=== PATIENT | male | born 1990 | race Two or more races ===

== ENCOUNTER 2016-05-22 16:08 | Inpatient (IN) | payer MEDICAID ==
[~2016-05-22] VITALS: Ht 175.3 cm; Wt 85.0 kg
[~2016-05-22 16:08] MED LIST: LACT10SO PO; PANT40TA2 PO
[2016-05-22 16:51] LABS: Basophils # (auto) 0 uL; DEFINITIVE VIEW TRANSMISSION; Eosinophils # (auto) 0 uL; Eosinophils % (auto) 0.4 % (0.0-7.0); Hematocrit 26.9 % (41.0-53.0); Hemoglobin 8.1 g/dL (13.5-17.5); Lymphocytes # (auto) 0.5 uL; Lymphocytes % (auto) 4.1 % (10.0-50.0); Mean Corpuscular Hemoglobin 23.8 pg (28.0-32.0); Mean Corpuscular Hgb Conc. 30.3 g/dL (32.0-36.0); Mean Corpuscular Volume 78.8 fL (80.0-100.0); Mean Platelet Volume 8.6 fL (7.4-10.4); Monocytes # (auto) 0.9 uL; Monocytes % (auto) 6.9 % (0.0-12.0); Neutrophils % (auto) 88.6 % (37.0-80.0); Platelet Count (auto) 62 10^3/uL (140-450); Red Cell Distribution Width 19.4 % (11.6-16.0); White Blood Cell 12.5 10^3/uL (4.4-10.8)
[2016-05-22 17:18] LABS: Albumin 3.6 g/dL (3.4-5.0); Anion Gap 11 (5-15); Aspartate Aminotransferase 112 U/L (15-37); BUN/Creatinine Ratio 8.6; Blood Urea Nitrogen 6 mg/dL (7-18); Calcium 8.6 mg/dL (8.5-10.1); Carbon Dioxide 25 mmol/L (21-32); Chloride 101 mmol/L (98-107); GFR African American 174 mL/min; GFR Non-African American 144 mL/min; Glucose 99 mg/dL (74-106); Potassium 3.6 mmol/L (3.5-5.1); Sodium 137 mmol/L (136-145)
[2016-05-22 17:20] LABS: Alkaline Phosphatase 240 U/L (45-117); Bilirubin, Total 1.8 mg/dL (0.2-1.0); Total Protein 10.2 g/dL (6.4-8.2)
[2016-05-22] MEDS ORDERED: SODIUM CHLORIDE 0.9% 2,000 ML IV ONE (17:30)
[2016-05-22] MEDS ORDERED: LORazepam 2MG/ML-1ML VIAL IV ONE (17:30)
[2016-05-22 17:38] LABS: Anisocytosis Moderate; Hypochromia Moderate; Platelet Estimate Decreased
[2016-05-22] MEDS ORDERED: LACTULOSE 20Gm/30ML SOLN PO ONE (18:45)
[2016-05-22] MEDS: SODIUM CHLORIDE 0.9% 1,000 ML IV SCH (19:58)
[2016-05-22] MEDS ORDERED: chlordiazePOXIDE HCL 25 MG CAP PO ONE (20:00)
[2016-05-22] MEDS ORDERED: THIAMINE HCL 100 MG/ML 2ML VIAL IV ONE (20:00)
[2016-05-22] MEDS ORDERED: MORPHINE SULFATE 4 MG/ML SYRG IV PRN (20:00)
[2016-05-22] MEDS ORDERED: LACTULOSE 20Gm/30ML SOLN PO PRN (20:00)
[2016-05-22] MEDS ORDERED: MORPHINE SULF INJ 2 MG/ML SYRINGE 1ML IV PRN (20:00)
[2016-05-22] MEDS ORDERED: PANTOPRAZOLE SODIUM 40 MG/10 ML VIAL IV ONE (20:00)
[2016-05-22] MEDS ORDERED: NITROGLYCERIN 0.4 MG SL TAB SL PRN (20:00)
[2016-05-22 20:57] LABS: Amylase 97 U/L (25-115)
[2016-05-22 21:18] LABS: Partial Thromboplastin Time 29.3 sec (22.64-33.71)
[2016-05-22] MEDS: PROMETHAZINE HCL 25 MG/ML 1ML IV PRN (21:27)
[2016-05-22 21:34] LABS: Urine Bilirubin Negative (Negative); Urine Blood Negative /uL (Negative); Urine Color Yellow (Yellow); Urine Glucose Normal (Normal); Urine Ketone 1+ (Negative); Urine Mucus FEW (None Seen); Urine Nitrite Negative (Negative); Urine RBC 1 /hpf (0 - 3); Urine Squamous Epithelial Cell FEW /hpf (<5)
[2016-05-22 21:35] LABS: INR 1.24 (0.9-1.15); Prothrombin Time 12.8 sec (9.37-12.3)
[2016-05-22] MEDS: LORazepam 2MG/ML-1ML VIAL IV PRN (21:57)
[2016-05-22 22:05] VITALS: BP 138/79
[2016-05-22] MEDS: MORPHINE SULF INJ 2 MG/ML SYRINGE 1ML IV PRN (22:14)
[2016-05-22] MEDS ORDERED: PROP60CA8 PO (22:49)
[2016-05-22] MEDS ORDERED: FER325T PO (22:49)
[2016-05-22] MEDS ORDERED: TRAZ50TA2 PO (22:49)
[2016-05-22] MEDS ORDERED: SPIR25TA89 PO (22:49)
[2016-05-22] MEDS ORDERED: PANT40TA2 PO (22:49)
[2016-05-22] MEDS ORDERED: LOR05T PO (22:50)
[2016-05-22] MEDS: chlordiazePOXIDE HCL 5 MG CAP PO SCH (23:36)
[2016-05-22 23:39] VITALS: BP 148/85
[2016-05-23] VITALS (10 sets, daily range): BP systolic 139–149; BP diastolic 79–94
[2016-05-23 01:09] LABS: Hematocrit 23.7 % (41.0-53.0); Hemoglobin 7.2 g/dL (13.5-17.5)
[2016-05-23] MEDS: SODIUM CHLORIDE 0.9% 1,000 ML IV SCH ×2 (02:27→06:01)
[2016-05-23] MEDS: chlordiazePOXIDE HCL 5 MG CAP PO SCH ×4 (06:01→23:25)
[2016-05-23] MEDS: MORPHINE SULF INJ 2 MG/ML SYRINGE 1ML IV PRN ×2 (06:17→21:53)
[2016-05-23] MEDS: PROMETHAZINE HCL 25 MG/ML 1ML IV PRN ×2 (06:17→10:16)
[2016-05-23 06:33] LABS: Basophils # (auto) 0 uL; Basophils % (auto) 0.1 % (0.0-2.0); DEFINITIVE VIEW TRANSMISSION; Eosinophils # (auto) 0.1 uL; Eosinophils % (auto) 1.3 % (0.0-7.0); Hematocrit 22.9 % (41.0-53.0); Lymphocytes # (auto) 0.7 uL; Lymphocytes % (auto) 7.3 % (10.0-50.0); Mean Corpuscular Hemoglobin 23.5 pg (28.0-32.0); Mean Corpuscular Hgb Conc. 30.1 g/dL (32.0-36.0); Mean Corpuscular Volume 78.1 fL (80.0-100.0); Mean Platelet Volume 8.6 fL (7.4-10.4); Monocytes # (auto) 0.9 uL; Monocytes % (auto) 10.2 % (0.0-12.0); Neutrophils # (auto) 7.5 uL; Neutrophils % (auto) 81.1 % (37.0-80.0); Platelet Count (auto) 43 10^3/uL (140-450); Red Cell Distribution Width 19.7 % (11.6-16.0); White Blood Cell 9.3 10^3/uL (4.4-10.8)
[2016-05-23 06:42] LABS: Hemoglobin 6.9 g/dL (13.5-17.5)
[2016-05-23 06:51] LABS: Potassium 3.3 mmol/L (3.5-5.1)
[2016-05-23 06:54] LABS: Cholesterol 138 mg/dL (<200); HDL Cholesterol 60 mg/dL (40-59); LDL Cholesterol 81 mg/dL (<100); Triglycerides 96 mg/dL (<150)
[2016-05-23 07:05] LABS: BUN/Creatinine Ratio 14.5; Bilirubin, Total 1.8 mg/dL (0.2-1.0); Calcium 7.8 mg/dL (8.5-10.1); Total Protein 8.5 g/dL (6.4-8.2)
[2016-05-23] MEDS: THIAMINE HCL 100 MG/ML 2ML VIAL IV SCH (10:16)
[2016-05-23] MEDS: PANTOPRAZOLE SODIUM 40 MG/10 ML VIAL IV SCH (10:16)
[2016-05-23] MEDS ORDERED: ATENOLOL 25 MG TAB PO ONE (13:00)
[2016-05-23] MEDS ORDERED: SOD CHL 0.9%/ KCL 20MEQ 1,000 ML IV SCH (13:00)
[2016-05-23] MEDS ORDERED: POTASSIUM CHL 20 Meq TABLET PO ONE (13:00)
[2016-05-23 20:16] LABS: DEFINITIVE VIEW TRANSMISSION; Hematocrit 28.6 % (41.0-53.0); Hemoglobin 8.6 g/dL (13.5-17.5); Mean Corpuscular Hemoglobin 24.1 pg (28.0-32.0); Mean Corpuscular Volume 80.5 fL (80.0-100.0); Mean Platelet Volume 8.7 fL (7.4-10.4); Platelet Count (auto) 69 10^3/uL (140-450); Red Cell Distribution Width 19.1 % (11.6-16.0); White Blood Cell 9.4 10^3/uL (4.4-10.8)
[2016-05-23 20:19] LABS: Metamyelocytes % 0; Myelocytes % 0; Promyelocytes % 0; Reactive Lymphocytes 0
[2016-05-23] MEDS: LORazepam 2MG/ML-1ML VIAL IV PRN (21:46)
[2016-05-23 21:48] LABS: Anisocytosis Moderate; Hypochromia Moderate; Platelet Estimate Decreased
[2016-05-24] VITALS (7 sets, daily range): BP systolic 126–143; BP diastolic 69–84
[2016-05-24 05:00] LABS: Basophils # (auto) 0 uL; Basophils % (auto) 0.1 % (0.0-2.0); DEFINITIVE VIEW TRANSMISSION; Eosinophils # (auto) 0.3 uL; Eosinophils % (auto) 3.1 % (0.0-7.0); Hematocrit 28.5 % (41.0-53.0); Hemoglobin 8.5 g/dL (13.5-17.5); Lymphocytes # (auto) 0.8 uL; Lymphocytes % (auto) 7.6 % (10.0-50.0); Mean Corpuscular Hemoglobin 24.1 pg (28.0-32.0); Mean Corpuscular Hgb Conc. 29.8 g/dL (32.0-36.0); Mean Corpuscular Volume 80.7 fL (80.0-100.0); Mean Platelet Volume 8.4 fL (7.4-10.4); Monocytes # (auto) 0.6 uL; Monocytes % (auto) 6.4 % (0.0-12.0); Neutrophils # (auto) 8.3 uL; Neutrophils % (auto) 82.8 % (37.0-80.0); Platelet Count (auto) 68 10^3/uL (140-450)
[2016-05-24 05:27] LABS: Albumin 3.2 g/dL (3.4-5.0); BUN/Creatinine Ratio 9.2; Bilirubin, Total 2.3 mg/dL (0.2-1.0); Calcium 8.4 mg/dL (8.5-10.1); Potassium 3.7 mmol/L (3.5-5.1); Total Protein 8.7 g/dL (6.4-8.2)
[2016-05-24] MEDS: chlordiazePOXIDE HCL 5 MG CAP PO SCH ×4 (06:05→23:18)
[2016-05-24] MEDS: THIAMINE HCL 100 MG/ML 2ML VIAL IV SCH (09:37)
[2016-05-24] MEDS: PANTOPRAZOLE SODIUM 40 MG/10 ML VIAL IV SCH (09:38)
[2016-05-24] MEDS ORDERED: ATENOLOL 25 MG TAB PO SCH (10:00)
[2016-05-24] MEDS: MORPHINE SULF INJ 2 MG/ML SYRINGE 1ML IV PRN (19:42)
[2016-05-24] MEDS: ATENOLOL 25 MG TAB PO SCH (21:13)
[2016-05-25] MEDS: MORPHINE SULF INJ 2 MG/ML SYRINGE 1ML IV PRN ×4 (01:45→23:33)
[2016-05-25 05:22] VITALS: BP 131/68
[2016-05-25 05:32] VITALS: BP 131/68
[2016-05-25] MEDS: chlordiazePOXIDE HCL 5 MG CAP PO SCH ×4 (06:22→23:33)
[2016-05-25 07:16] LABS: Basophils # (auto) 0.1 uL; Basophils % (auto) 0.5 % (0.0-2.0); DEFINITIVE VIEW TRANSMISSION; Eosinophils # (auto) 0.3 uL; Eosinophils % (auto) 2.8 % (0.0-7.0); Hematocrit 28.8 % (41.0-53.0); Hemoglobin 8.6 g/dL (13.5-17.5); Lymphocytes # (auto) 0.9 uL; Lymphocytes % (auto) 8.6 % (10.0-50.0); Mean Corpuscular Hemoglobin 23.9 pg (28.0-32.0); Mean Corpuscular Volume 79.8 fL (80.0-100.0); Mean Platelet Volume 9.2 fL (7.4-10.4); Monocytes # (auto) 0.9 uL; Monocytes % (auto) 8.2 % (0.0-12.0); Neutrophils # (auto) 8.4 uL; Neutrophils % (auto) 79.9 % (37.0-80.0); Platelet Count (auto) 87 10^3/uL (140-450); Red Cell Distribution Width 19.6 % (11.6-16.0); White Blood Cell 10.6 10^3/uL (4.4-10.8)
[2016-05-25 09:00] VITALS: BP 119/70
[2016-05-25] MEDS: THIAMINE HCL 100 MG/ML 2ML VIAL IV SCH (10:47)
[2016-05-25] MEDS: ATENOLOL 25 MG TAB PO SCH ×2 (10:48→22:05)
[2016-05-25] MEDS: LORazepam 2MG/ML-1ML VIAL IV PRN ×2 (12:23→18:19)
[2016-05-25 13:00] VITALS: BP 122/70
[2016-05-25 17:00] VITALS: BP 119/66
[2016-05-25 21:45] VITALS: BP 115/67
[2016-05-26] MEDS: LORazepam 2MG/ML-1ML VIAL IV PRN ×4 (00:21→22:37)
[2016-05-26 05:00] VITALS: BP 129/74
[2016-05-26 05:53] LABS: Hematocrit 29.5 % (41.0-53.0); Hemoglobin 8.8 g/dL (13.5-17.5)
[2016-05-26 06:02] LABS: INR 1.49 (0.9-1.15); Prothrombin Time 15.3 sec (9.37-12.3)
[2016-05-26] MEDS: chlordiazePOXIDE HCL 5 MG CAP PO SCH ×3 (06:06→18:32)
[2016-05-26 08:53] VITALS: BP 117/55
[2016-05-26 10:25] LABS: Albumin 3.1 g/dL (3.4-5.0); BUN/Creatinine Ratio 10.2; Bilirubin, Total 1.7 mg/dL (0.2-1.0); Calcium 8.5 mg/dL (8.5-10.1); Potassium 3.7 mmol/L (3.5-5.1); Total Protein 8.8 g/dL (6.4-8.2)
[2016-05-26] MEDS: THIAMINE HCL 100 MG/ML 2ML VIAL IV SCH (10:39)
[2016-05-26] MEDS: ATENOLOL 25 MG TAB PO SCH ×2 (10:41→22:03)
[2016-05-26 13:00] VITALS: BP 117/61
[2016-05-26 17:00] VITALS: BP 127/57
[2016-05-26 22:00] VITALS: BP 119/67
[2016-05-26] MEDS: LACTULOSE 20Gm/30ML SOLN PO SCH (22:03)
[2016-05-27] MEDS: chlordiazePOXIDE HCL 5 MG CAP PO SCH ×2 (00:27→05:52)
[2016-05-27] MEDS: LORazepam 2MG/ML-1ML VIAL IV PRN ×2 (00:40→06:09)
[2016-05-27 05:00] VITALS: BP 122/62
[2016-05-27] MEDS: LACTULOSE 20Gm/30ML SOLN PO SCH (05:52)
[2016-05-27 09:21] VITALS: BP 119/70
[2016-05-27] MEDS ORDERED: ATE25T PO (09:58)
[2016-05-27] MEDS ORDERED: FER325T PO (09:58)
[2016-05-27] MEDS ORDERED: LACT10SO PO (09:58)
[2016-05-27] MEDS: ATENOLOL 25 MG TAB PO SCH (10:06)
[2016-05-27] MEDS: THIAMINE HCL 100 MG/ML 2ML VIAL IV SCH (10:07)
[2016-05-27 11:13] VITALS: BP 128/72
== END 2016-05-27 12:00 | disposition still patient (30) | DRG 775 ==
LOC: ER 16:11 → TELE 16:12 → DOU IN ICU 21:07 → CENTRAL 05-25 00:12
PROVIDERS: ADMIT Internal Medicine; ATTEND Internal Medicine
PROC: 30233R1 Transfusion of Nonautologous Platelets into Peripheral Vein, Percutaneous Approach (ICD-10-PCS; principal; 2016-05-23)
PROC: 30233N1 Transfusion of Nonautologous Red Blood Cells into Peripheral Vein, Percutaneous Approach (ICD-10-PCS; 2016-05-23)
DX: F10.231 Alcohol dependence with withdrawal delirium (principal); D68.9 Coagulation defect, unspecified; K92.0 Hematemesis; K70.30 Alcoholic cirrhosis of liver without ascites; D69.6 Thrombocytopenia, unspecified; D62 Acute posthemorrhagic anemia; F32.9 Major depressive disorder, single episode, unspecified; D72.829 Elevated white blood cell count, unspecified; I10 Essential (primary) hypertension; F41.9 Anxiety disorder, unspecified; G40.909 Epilepsy, unspecified, not intractable, without status epilepticus; F17.210 Nicotine dependence, cigarettes, uncomplicated; Z81.1 Family history of alcohol abuse and dependence; Z82.0 Family history of epilepsy and other diseases of the nervous system; Z79.899 Other long term (current) drug therapy; Z71.41 Alcohol abuse counseling and surveillance of alcoholic
CPT/HCPCS: 36415; 36430; 80053; 80061; 80320; 81001; 82140; 82150; 82270; 82962; 83690; 85007; 85014; 85018; 85025; 85027; 85045; 85610; 85730; 86850; 86900; 86901; 86920; 87081; 96361; 96374; 96375; C9113; G0434

== ENCOUNTER 2017-07-08 19:44 | Inpatient (IN) | payer SELFPAY ==
[~2017-07-08] VITALS: Ht 175.3 cm; Wt 86.2 kg
[~2017-07-08 19:44] MED LIST changes: +ATEN25TA PO; +FER325T PO; -LACT10SO PO; +LACT10SO3 PO
[2017-07-08] MEDS ORDERED: SODIUM CHLORIDE 0.9% 1,000 ML IV ONE (21:18)
[2017-07-08] MEDS ORDERED: PANTOPRAZOLE 40 MG/10 ML VIAL IV ONE (21:30)
[2017-07-08] MEDS ORDERED: ONDANSETRON HCL 4 MG/2 ML VIAL IV ONE ×2 (21:30→23:30)
[2017-07-08] MEDS ORDERED: NALBUPHINE HCL 10 MG/1ml INJECTION IV ONE ×2 (21:30→23:30)
[2017-07-08 21:43] LABS: Eosinophils # (auto) 0 uL; Lymphocytes # (auto) 0.2 uL; Neutrophils # (auto) 4.7 uL
[2017-07-08 21:45] LABS: Basophils # (auto) 0.1 uL; Basophils % (auto) 1.1 % (0.0-2.0); Hematocrit 21.5 % (41.0-53.0); Lymphocytes % (auto) 3.4 % (10.0-50.0); Mean Corpuscular Hemoglobin 21.9 pg (28.0-32.0); Mean Corpuscular Hgb Conc. 30.6 g/dL (32.0-36.0); Mean Corpuscular Volume 71.5 fL (80.0-100.0); Monocytes # (auto) 0.8 uL; Monocytes % (auto) 13.4 % (0.0-12.0); Neutrophils % (auto) 82.1 % (37.0-80.0); Nucleated Red Blood Cells % 0.6 %; Platelet Count (auto) 31 10^3/uL (140-450); White Blood Cell 5.7 10^3/uL (4.4-10.8)
[2017-07-08 21:57] LABS: Red Cell Distribution Width 24.5 % (11.8-14.3)
[2017-07-08 22:03] LABS: Calcium 7.5 mg/dL (8.5-10.1); Potassium 3.7 mmol/L (3.5-5.1)
[2017-07-08 22:05] LABS: Bilirubin, Total 2.3 mg/dL (0.2-1.0); Total Protein 8.1 g/dL (6.4-8.2)
[2017-07-08 22:08] LABS: Hemoglobin 6.6 g/dL (13.5-17.5)
[2017-07-08 22:11] LABS: INR 1.29 (0.9-1.15); Partial Thromboplastin Time 26.4 sec (22.64-33.71); Prothrombin Time 14.1 sec (9.37-12.3)
[2017-07-08] MEDS ORDERED: THIAMINE INJ 100 MG, MULTIPLE VITAMIN 10 ML, FOLIC ACID 1 MG, MAGNESIUM SULF SDV 50% 8 ... IV SCH ×5 (22:30)
[2017-07-08] MEDS ORDERED: PHYTONADIONE (VIT K)10 MG/ML 1ML VIAL SUBCUT ONE ×2 (22:30)
[2017-07-09] VITALS (15 sets, daily range): BP systolic 131–171; BP diastolic 59–96
[2017-07-09] MEDS: ONDANSETRON HCL 4 MG/2 ML VIAL IV PRN ×2 (01:15→08:47)
[2017-07-09] MEDS ORDERED: ONDANSETRON HCL 4 MG/2 ML VIAL IV PRN (02:15)
[2017-07-09] MEDS ORDERED: NITROGLYCERIN 0.4 MG SL TAB SL PRN (02:15)
[2017-07-09] MEDS ORDERED: MORPHINE SULFATE 4 MG/ML SYR/VIAL IV PRN ×2 (02:15)
[2017-07-09 07:28] LABS: Hematocrit 21.3 % (41.0-53.0)
[2017-07-09 07:35] LABS: Hemoglobin 6.9 g/dL (13.5-17.5)
[2017-07-09 07:39] LABS: INR 1.27 (0.9-1.15); Partial Thromboplastin Time 28.6 sec (22.64-33.71); Prothrombin Time 13.9 sec (9.37-12.3)
[2017-07-09] MEDS: chlordiazePOXIDE HCL 5 MG CAP PO PRN (08:19)
[2017-07-09] MEDS: SODIUM CHLORIDE 0.9% 1,000 ML IV SCH ×2 (09:00→15:13)
[2017-07-09] MEDS ORDERED: ATENOLOL 25 MG PO SCH (10:00)
[2017-07-09] MEDS ORDERED: LACTULOSE 20Gm/30ML SOLN PO SCH (10:00)
[2017-07-09] MEDS: PANTOPRAZOLE 40 MG/10 ML VIAL IV SCH ×2 (11:08→22:18)
[2017-07-09 14:39] LABS: Basophils # (auto) 0 uL; Eosinophils # (auto) 0 uL; Mean Corpuscular Volume 75.1 fL (80.0-100.0); Monocytes # (auto) 0.6 uL; White Blood Cell 3.9 10^3/uL (4.4-10.8)
[2017-07-09 14:41] LABS: Eosinophils % (auto) 0.7 % (0.0-7.0); Hemoglobin 7.2 g/dL (13.5-17.5); Lymphocytes # (auto) 0.7 uL; Lymphocytes % (auto) 18.7 % (10.0-50.0); Mean Corpuscular Hemoglobin 23.7 pg (28.0-32.0); Mean Corpuscular Hgb Conc. 31.5 g/dL (32.0-36.0); Monocytes % (auto) 15.7 % (0.0-12.0); Neutrophils # (auto) 2.5 uL; Neutrophils % (auto) 63.9 % (37.0-80.0); Nucleated Red Blood Cells % 0.6 %; Red Blood Cells 3.06 10^6/uL (4.5-5.90)
[2017-07-09 14:58] LABS: Red Cell Distribution Width 24.3 % (11.8-14.3)
[2017-07-09 14:59] LABS: Platelet Count (auto) 20 10^3/uL (140-450)
[2017-07-09] MEDS: METOPROLOL TARTRATE 25 MG TAB PO SCH ×2 (18:07→22:18)
[2017-07-09] MEDS: LACTULOSE 20Gm/30ML SOLN PO SCH (22:18)
[2017-07-09] MEDS ORDERED: MULTIPLE VITAMIN 10 ML, FOLIC ACID 1 MG, MAGNESIUM SULF SDV 50% 8 MEQ in SODIUM CHLORID... IV SCH (22:30)
[2017-07-10 00:08] VITALS: BP 137/74
[2017-07-10] MEDS: METOPROLOL TARTRATE 25 MG TAB PO SCH (00:08)
[2017-07-10 01:14] LABS: Hemoglobin 8.3 g/dL (13.5-17.5)
[2017-07-10 01:16] LABS: Hematocrit 26.3 % (41.0-53.0); Mean Corpuscular Hemoglobin 24.6 pg (28.0-32.0); Mean Corpuscular Hgb Conc. 31.5 g/dL (32.0-36.0); Platelet Count (auto) 21 10^3/uL (140-450); Red Blood Cells 3.37 10^6/uL (4.5-5.90); White Blood Cell 3.9 10^3/uL (4.4-10.8)
[2017-07-10 01:30] LABS: Basophils % (manual) 0 (0.0-2.0); Blast Cells 0; Metamyelocytes % 0; Myelocytes % 0; Promyelocytes % 0; Reactive Lymphocytes 0; Red Cell Distribution Width 24.4 % (11.8-14.3)
[2017-07-10 01:50] LABS: Band Neutrophils % (manual) 3; Eosinophils % (manual) 1 (0-7); Lymphocytes % (manual) 26 (10.0-50.0); Monocytes % (manual) 14 (0-12)
[2017-07-10] MEDS: SODIUM CHLORIDE 0.9% 1,000 ML IV SCH (03:36)
[2017-07-10 05:23] LABS: Basophils # (auto) 0 uL; Eosinophils # (auto) 0 uL; Hemoglobin 8.1 g/dL (13.5-17.5); Monocytes # (auto) 0.5 uL; White Blood Cell 3.7 10^3/uL (4.4-10.8)
[2017-07-10 05:25] LABS: Eosinophils % (auto) 1.3 % (0.0-7.0); Hematocrit 26.2 % (41.0-53.0); Lymphocytes # (auto) 0.6 uL; Lymphocytes % (auto) 17.1 % (10.0-50.0); Mean Corpuscular Hemoglobin 24.3 pg (28.0-32.0); Mean Corpuscular Hgb Conc. 31.1 g/dL (32.0-36.0); Mean Corpuscular Volume 78.3 fL (80.0-100.0); Monocytes % (auto) 13.3 % (0.0-12.0); Neutrophils # (auto) 2.5 uL; Neutrophils % (auto) 67.3 % (37.0-80.0); Nucleated Red Blood Cells % 0.2 %; Platelet Count (auto) 23 10^3/uL (140-450); Red Blood Cells 3.35 10^6/uL (4.5-5.90)
[2017-07-10 05:26] LABS: Red Cell Distribution Width 24.2 % (11.8-14.3)
[2017-07-10 05:44] LABS: Albumin 3.1 g/dL (3.4-5.0); BUN/Creatinine Ratio 11.3; Bilirubin, Total 2.5 mg/dL (0.2-1.0); Calcium 7.1 mg/dL (8.5-10.1); Potassium 3.8 mmol/L (3.5-5.1); Total Protein 7.6 g/dL (6.4-8.2)
[2017-07-10 05:53] VITALS: BP 146/80
[2017-07-10] MEDS: chlordiazePOXIDE HCL 5 MG CAP PO PRN (06:21)
[2017-07-10] MEDS: LACTULOSE 20Gm/30ML SOLN PO SCH (06:22)
[2017-07-10] MEDS ORDERED: LORazepam 2MG/ML-1ML VIAL IV ONE (07:30)
== END 2017-07-10 08:00 | disposition left against medical advice (07) | DRG 433 ==
LOC: EDBD 19:44 → ER 19:57 → TELE 19:58
PROVIDERS: ADMIT Nurse Practitioner; ATTEND Internal Medicine Pulmonary Disease
DX: K70.40 Alcoholic hepatic failure without coma (principal); D68.9 Coagulation defect, unspecified; K70.30 Alcoholic cirrhosis of liver without ascites; D61.818 Other pancytopenia; K92.0 Hematemesis; D62 Acute posthemorrhagic anemia; D69.6 Thrombocytopenia, unspecified; E44.1 Mild protein-calorie malnutrition; I10 Essential (primary) hypertension; F17.210 Nicotine dependence, cigarettes, uncomplicated; F10.129 Alcohol abuse with intoxication, unspecified; Z82.0 Family history of epilepsy and other diseases of the nervous system; Z68.28 Body mass index [BMI] 28.0-28.9, adult; Z53.21 Procedure and treatment not carried out due to patient leaving prior to being seen by health care provider
CPT/HCPCS: 36415; 36430; 71045; 74176; 80053; 82140; 83690; 85007; 85014; 85018; 85025; 85027; 85610; 85730; 86850; 86900; 86901; 86920; 93005; 94761; 96361; 96365; 96372; 96375; C9113; J2405; J3430

== ENCOUNTER 2017-08-23 07:59 | Inpatient (IN) | payer MEDICAID ==
[~2017-08-23] VITALS: Ht 180.3 cm; Wt 90.7 kg
[2017-08-23] VITALS (19 sets, daily range): BP systolic 60–144; BP diastolic 17–122
[2017-08-23] MEDS ORDERED: ONDANSETRON HCL 4 MG/2 ML VIAL ONE (08:08)
[2017-08-23] MEDS ORDERED: SODIUM CHLORIDE 0.9% 1,000 ML IVB ONE (08:30)
[2017-08-23] MEDS ORDERED: PANTOPRAZOLE 80 MG in SODIUM CHL 0.9% 60 ML IV ONE (08:30)
[2017-08-23] MEDS ORDERED: OCTREOTIDE ACETATE 500 MCG in SODIUM CHL 0.9% 100 ML IV ONE (08:30)
[2017-08-23] MEDS ORDERED: HYDROmorphone HCL 2 MG/ML VL IV ONE (08:30)
[2017-08-23] MEDS ORDERED: ONDANSETRON HCL 4 MG/2 ML VIAL IV ONE (09:00)
[2017-08-23 09:18] LABS: Eosinophils # (auto) 0 uL
[2017-08-23 09:19] LABS: Basophils # (auto) 0.1 uL; Basophils % (auto) 0.7 % (0.0-2.0); Eosinophils % (auto) 0.1 % (0.0-7.0); Hematocrit 14.7 % (41.0-53.0); Lymphocytes # (auto) 1.9 uL; Lymphocytes % (auto) 10.3 % (10.0-50.0); Mean Corpuscular Hemoglobin 26.6 pg (28.0-32.0); Mean Corpuscular Hgb Conc. 29.8 g/dL (32.0-36.0); Mean Corpuscular Volume 89.3 fL (80.0-100.0); Monocytes # (auto) 2.6 uL; Monocytes % (auto) 14.5 % (0.0-12.0); Neutrophils # (auto) 13.4 uL; Neutrophils % (auto) 74.4 % (37.0-80.0); Nucleated Red Blood Cells % 0.2 %; Platelet Count (auto) 205 10^3/uL (140-450); Red Blood Cells 1.64 10^6/uL (4.5-5.90)
[2017-08-23 09:22] LABS: INR 1.59 (0.9-1.15); Prothrombin Time 17.4 sec (9.37-12.3)
[2017-08-23 09:24] LABS: Hemoglobin 4.4 g/dL (13.5-17.5)
[2017-08-23 09:35] LABS: Alanine Aminotransferase 35 U/L (16-61); Albumin 1.6 g/dL (3.4-5.0); Alkaline Phosphatase 90 U/L (45-117); Anion Gap 16 (5-15); Aspartate Aminotransferase 96 U/L (15-37); BUN/Creatinine Ratio 13.6; Bilirubin, Total 1.7 mg/dL (0.2-1.0); Blood Urea Nitrogen 16 mg/dL (7-18); Calcium 6.7 mg/dL (8.5-10.1); Carbon Dioxide 14 mmol/L (21-32); Chloride 107 mmol/L (98-107); GFR African American 95 mL/min; GFR Non-African American 78 mL/min; Glucose 91 mg/dL (74-106); Magnesium 2.1 mg/dL (1.6-2.6); Potassium 4.6 mmol/L (3.5-5.1); Sodium 137 mmol/L (136-145); Total Protein 4.3 g/dL (6.4-8.2)
[2017-08-23] MEDS ORDERED: LORazepam 2MG/ML-1ML VIAL IV ONE (10:00)
[2017-08-23] MEDS ORDERED: THIAMINE INJ 100 MG, MULTIPLE VITAMIN 10 ML, FOLIC ACID 1 MG, MAGNESIUM SULF SDV 50% 8 ... IV SCH ×5 (12:00)
[2017-08-23] MEDS ORDERED: SODIUM CHLORIDE 0.9% 1,000 ML IV SCH ×3 (13:02→15:30)
[2017-08-23] MEDS ORDERED: LORazepam 2MG/ML-1ML VIAL ONE ×2 (13:14→16:26)
[2017-08-23] MEDS ORDERED: NITROGLYCERIN 0.4 MG SL TAB SL PRN (13:15)
[2017-08-23] MEDS ORDERED: PANTOPRAZOLE 40 MG/10 ML VIAL IV ONE (13:15)
[2017-08-23] MEDS ORDERED: cefTRIAXone 1GM/10ml IVPUSH 10 ML IV ONE (13:15)
[2017-08-23] MEDS ORDERED: MORPHINE SULFATE 4 MG/ML SYR/VIAL IV PRN (13:15)
[2017-08-23] MEDS ORDERED: PHYTONADIONE (VIT K)10 MG/ML 1ML VIAL SUBCUT ONE (13:15)
[2017-08-23] MEDS ORDERED: EPINEPHrine HCL 1 MG/10 ML SYRG ONE ×2 (13:19→19:47)
[2017-08-23] MEDS ORDERED: LEVETIRACETAM INJ 1,000 MG in D5W 5% 100 ML IV SCH (13:25)
[2017-08-23] MEDS ORDERED: MIDAZOLAM HCL 5 MG/ML-1ML VIAL ONE ×2 (13:52→14:54)
[2017-08-23] MEDS ORDERED: CALCIUM CHL 100MG/ML 1,000 MG in D5W 5% 100 ML IV ONE (14:15)
[2017-08-23] MEDS ORDERED: ERYTHROMYCIN LACTOBIONATE 250 MG in SODIUM CHL 0.9% 100 ML IV ONE (14:15)
[2017-08-23] MEDS ORDERED: MIDAZOLAM DRIP 50 mg/50mL 50 ML IV SCH (14:25)
[2017-08-23 14:26] LABS: Urine Bacteria NONE SEEN /hpf (None Seen); Urine Blood TRACE /uL (Negative); Urine Specific Gravity 1.021 (1.001-1.035); Urine Sperm PRESENT /hpf (None Seen); Urine WBC 4 /hpf (0 - 3)
[2017-08-23] MEDS ORDERED: MIDAZOLAM DRIP 50 mg/50mL 50 ML IV ONE (14:27)
[2017-08-23] MEDS: OCTREOTIDE ACETATE 500 MCG in SODIUM CHL 0.9% 99 ML IV SCH (14:30)
[2017-08-23] MEDS ORDERED: MIDAZOLAM HCL 5 MG/ML-1ML VIAL IV ONE (14:45)
[2017-08-23] MEDS ORDERED: EPINEPHrine HCL 1 MG/10 ML SYRG IV ONE (14:45)
[2017-08-23] MEDS: metroNIDAZOLE 500MG/100ML 100 ML IV SCH ×2 (14:53→21:17)
[2017-08-23] MEDS ORDERED: NALOXONE HCL 0.4 MG/ML VIAL ONE (14:54)
[2017-08-23] MEDS ORDERED: BENZOCAINE (DENTAL) 20 % SPRAY 60ML MT ONE (14:54)
[2017-08-23] MEDS ORDERED: fentaNYL CITRATE 100 MCG/2 ML VL ONE (14:54)
[2017-08-23] MEDS ORDERED: FLUMAZENIL 0.1 MG/ML INJ 10ML MDV IV ONE (14:54)
[2017-08-23] MEDS ORDERED: diphenhdrAMINE HCL 50 MG/1 ML VL ONE (14:55)
[2017-08-23] MEDS ORDERED: NOREPINEPHRINE 8 MG/250ML KIT 250 ML IV ONE (15:13)
[2017-08-23] MEDS ORDERED: NOREPINEPHRINE 8 MG/250ML KIT 250 ML IV SCH ×2 (15:18→15:30)
[2017-08-23] MEDS ORDERED: SODIUM CHLORIDE 0.9% 1,000 ML IV ONE (15:30)
[2017-08-23] MEDS ORDERED: SODIUM BICARBONATE 8.4% INJ 50ML SYRINGE ONE (16:02)
[2017-08-23] MEDS ORDERED: SODIUM BICARBONATE 8.4 % INJ 50ML VIAL IV ONE (16:15)
[2017-08-23] MEDS ORDERED: LORazepam 2MG/ML-1ML VIAL IV STA (16:25)
[2017-08-23] MEDS ORDERED: diphenhdrAMINE HCL 50 MG/1 ML VL IV ONE (16:45)
[2017-08-23] MEDS ORDERED: PROPOFOL 100 ML IV SCH (17:22)
[2017-08-23 21:54] LABS: Hemoglobin 9.1 g/dL (13.5-17.5)
[2017-08-23 21:56] LABS: Hematocrit 28.8 % (41.0-53.0)
[2017-08-23] MEDS: PANTOPRAZOLE 40 MG/10 ML VIAL IV SCH (22:00)
[2017-08-23 22:05] LABS: Amylase 129 U/L (25-115); INR 2.49 (0.9-1.15); Lipase 279 U/L (73-393); Prothrombin Time 25.3 sec (9.27-12.13)
[2017-08-23] MEDS: PHENYLEPHRINE INJ 20 MG in SODIUM CHL 0.9% 250 ML IV SCH (23:35)
[2017-08-24] VITALS (7 sets, daily range): BP systolic 59–184; BP diastolic 24–64
[2017-08-24] MEDS: PHENYLEPHRINE INJ 20 MG in SODIUM CHL 0.9% 250 ML IV SCH (00:13)
[2017-08-24] MEDS: OCTREOTIDE ACETATE 500 MCG in SODIUM CHL 0.9% 99 ML IV SCH (00:30)
[2017-08-24 01:28] LABS: Hematocrit 28.9 % (41.0-53.0); Hemoglobin 9.1 g/dL (13.5-17.5)
[2017-08-24] MEDS: metroNIDAZOLE 500MG/100ML 100 ML IV SCH ×2 (01:38→07:49)
[2017-08-24] MEDS ORDERED: ACETAMINOPHEN 650 MG RECT SUPP PR ONE (02:30)
[2017-08-24] MEDS ORDERED: PHENYLEPHRINE HCL 10 MG/ML VL ONE (02:54)
[2017-08-24] MEDS ORDERED: PHENYLEPHRINE IV 250 ML IV ONE (04:19)
[2017-08-24] MEDS ORDERED: DOPamine 1600MCG/ML D5W 250 ML IV ONE (05:28)
[2017-08-24] MEDS ORDERED: HETASTARCH 500 ML IV ONE ×2 (05:32→06:00)
[2017-08-24] MEDS ORDERED: DOPamine 1600MCG/ML D5W 250 ML IV SCH (06:00)
[2017-08-24] MEDS ORDERED: SODIUM BICARBONATE 8.4 % INJ 50ML VIAL IV ONE ×5 (06:00→14:08)
[2017-08-24] MEDS ORDERED: ATROPINE SULF 0.5 MG/5ML SYR IV ONE ×2 (06:00→14:07)
[2017-08-24 07:16] LABS: Hematocrit 24.6 % (41.0-53.0); Hemoglobin 7.5 g/dL (13.5-17.5)
[2017-08-24] MEDS ORDERED: D5W IV ONE ×2 (07:30)
[2017-08-24] MEDS ORDERED: SODIUM BICARB IV ONE ×2 (07:30)
[2017-08-24 07:36] LABS: INR 3.84 (0.9-1.15); Partial Thromboplastin Time 57.6 sec (23.78-33.04); Prothrombin Time 38.1 sec (9.27-12.13)
[2017-08-24] MEDS ORDERED: cefTRIAXone 1GM/10ml IVPUSH 10 ML IV SCH (09:00)
[2017-08-24 09:35] LABS: Calcium 7.6 mg/dL (8.5-10.1)
[2017-08-24 09:37] LABS: Total Protein 2.7 g/dL (6.4-8.2)
[2017-08-24 09:38] LABS: Potassium 6.7 mmol/L (3.5-5.1)
[2017-08-24] MEDS ORDERED: SODIUM BICARBONATE 8.4% INJ 50ML SYRINGE ONE ×2 (09:42→09:53)
[2017-08-24] MEDS ORDERED: DEXTROSE 50% SYRINGE 100 ML IV ONE (09:43)
[2017-08-24] MEDS ORDERED: CALCIUM GLUC 4.65meq/50ml D5AE 50 ML IV ONE ×2 (09:50→10:00)
[2017-08-24] MEDS: PANTOPRAZOLE 40 MG/10 ML VIAL IV SCH (09:58)
[2017-08-24] MEDS ORDERED: InsuLIN REG 1unit/0.01ml Soln (100units/ml) IV ONE (10:00)
[2017-08-24] MEDS ORDERED: ALBUTEROL SULF 2.5 MG/0.5ML(0.5%) NEB SOLN NEB ONE (10:00)
[2017-08-24] MEDS ORDERED: DEXTROSE (50%) 50ML SYRG IV ONE (10:00)
[2017-08-24] MEDS ORDERED: PHYTONADIONE (VIT K)10 MG/ML 1ML VIAL SUBCUT SCH (10:00)
[2017-08-24] MEDS ORDERED: FUROSEMIDE 20 MG/2 ML VIAL IV ONE (10:15)
[2017-08-24] MEDS ORDERED: MORPHINE SULFATE 8mg/ml INJ SDV IV PRN (10:30)
[2017-08-24] MEDS ORDERED: ALBUMIN 25% 100 ML IV SCH (11:00)
[2017-08-24] MEDS ORDERED: CALCIUM CHLOR(10%) 100MG/ML 10ML SYRINGE IV ONE (13:05)
[2017-08-24] MEDS ORDERED: EPINEPHrine HCL 1 MG/10 ML SYRG IV ONE ×2 (13:08→14:08)
[2017-08-24] MEDS ORDERED: D5W 5% 100 ML BAG IV ONE (14:08)
[2017-09-21] MEDS ORDERED: LORazepam 2MG/ML-1ML VIAL IV ONE (13:45)
== END 2017-08-24 10:30 | disposition expired | DRG 720 ==
LOC: EDBD 07:59 → ER 07:59 → TELE 08:00
PROVIDERS: ADMIT Internal Medicine; ATTEND Internal Medicine
PROC: 0DV68DZ Restriction of Stomach with Intraluminal Device, Via Natural or Artificial Opening Endoscopic (ICD-10-PCS; 2017-08-23)
PROC: 5A12012 Performance of Cardiac Output, Single, Manual (ICD-10-PCS; 2017-08-23)
PROC: 3E0G8GC Introduction of Other Therapeutic Substance into Upper GI, Via Natural or Artificial Opening Endoscopic (ICD-10-PCS; 2017-08-23)
PROC: 30233L1 Transfusion of Nonautologous Fresh Plasma into Peripheral Vein, Percutaneous Approach (ICD-10-PCS; 2017-08-23)
PROC: 30233N1 Transfusion of Nonautologous Red Blood Cells into Peripheral Vein, Percutaneous Approach (ICD-10-PCS; 2017-08-23)
PROC: 30233K1 Transfusion of Nonautologous Frozen Plasma into Peripheral Vein, Percutaneous Approach (ICD-10-PCS; 2017-08-23)
PROC: 5A1935Z Respiratory Ventilation, Less than 24 Consecutive Hours (ICD-10-PCS; 2017-08-23)
PROC: 0BH17EZ Insertion of Endotracheal Airway into Trachea, Via Natural or Artificial Opening (ICD-10-PCS; 2017-08-23)
PROC: 02H633Z Insertion of Infusion Device into Right Atrium, Percutaneous Approach (ICD-10-PCS; 2017-08-23)
PROC: 0W3P8ZZ Control Bleeding in Gastrointestinal Tract, Via Natural or Artificial Opening Endoscopic (ICD-10-PCS; principal; 2017-08-23 15:00)
PROC: 5A12012 Performance of Cardiac Output, Single, Manual (ICD-10-PCS; 2017-08-24)
DX: A41.9 Sepsis, unspecified organism (principal); I46.9 Cardiac arrest, cause unspecified; E43 Unspecified severe protein-calorie malnutrition; D68.9 Coagulation defect, unspecified; K27.4 Chronic or unspecified peptic ulcer, site unspecified, with hemorrhage; K70.30 Alcoholic cirrhosis of liver without ascites; E83.51 Hypocalcemia; K72.90 Hepatic failure, unspecified without coma; D50.0 Iron deficiency anemia secondary to blood loss (chronic); F10.20 Alcohol dependence, uncomplicated; F17.210 Nicotine dependence, cigarettes, uncomplicated; F41.9 Anxiety disorder, unspecified; G40.909 Epilepsy, unspecified, not intractable, without status epilepticus; I10 Essential (primary) hypertension; I86.4 Gastric varices; K21.9 Gastro-esophageal reflux disease without esophagitis; Z82.0 Family history of epilepsy and other diseases of the nervous system
CPT/HCPCS: 31500; 36415; 36430; 36556; 36600; 71045; 74018; 76705; 80053; 81001; 82140; 82150; 82805; 83690; 83735; 84443; 84484; 85014; 85018; 85025; 85045; 85610; 85730; 86850; 86900; 86901; 86920; 87070; 87205; 93005; 94003; 94640; 96365; 96367; 96375; 99291; C9113; J0461; J0610; J1815; J2250; J2405; J2704; J3430; J3490; J7042; J7060